=== PATIENT | female | born 1990 | race Caucasian/White ===

== ENCOUNTER 2019-09-29 15:28 | Day surgery (SDC) | payer MEDICAID ==
[2019-09-29] MEDS ORDERED: IV RINGERS,LACTATED 1000ML 1,000 ML IV SCH (15:31)
[2019-09-29] MEDS ORDERED: MORPHINE SULFATE 2 MG/ML VIAL. IV PRN (15:45)
[2019-09-29] MEDS ORDERED: HYDROmorphone 2 MG/ML VIAL IV PRN (15:45)
[2019-09-29] MEDS ORDERED: fentaNYL PF VIAL 100 MCG/2 ML VIAL IV PRN ×2 (15:45)
[2019-09-29] MEDS ORDERED: ONDANSETRON PF 4 MG/2 ML VIAL. IV PRN (15:45)
[2019-09-29] MEDS ORDERED: PROCHLORPERAZINE 10 MG/2 ML VIAL. IV PRN (15:45)
[2019-09-29] MEDS ORDERED: FEXO180T81 PO (15:46)
[2019-09-29] MEDS ORDERED: PNV1TABL78 PO (15:46)
[2019-09-29] MEDS ORDERED: ceFAZolin SODIUM IV Push 1 GM VIAL. IVP ONE (16:00)
[2019-09-29] MEDS ORDERED: SEVOFLURANE 31 TO 60 MINUTES. IH ONE (16:06)
[2019-09-29] MEDS ORDERED: DEXAMETHASONE SOD PHOS 4 MG/ML VIAL ONE (16:06)
[2019-09-29] MEDS ORDERED: PROPOFOL 10 MG/ML (20ML) VIAL. IV ONE (16:06)
[2019-09-29] MEDS ORDERED: LIDOCAINE 2% PF 5 ML VIAL. ONE (16:06)
--- NOTE | 2019-09-29 16:52 | PDOC ---
BRIEF OPERATIVE NOTE Date: Sep 29, 2019 Pre-Op Diagnosis 8 wk Incomplete Post-Op Diagnosis SAme Procedure Performed Suction D&C Surgeon Dr. Restrepo Anesthesia Type: General Blood Loss 100 ml Specimens Obtained POC Findings POC Complications none Operative Note see dictation MICHAEL RESTREPO Jr, MD Sep 29, 2019 16:52
--- NOTE | 2019-09-29 16:53 | DISCH ---
DISCHARGE INSTRUCTIONS Condition on Discharge Condition on Discharge: Stable Activity After Discharge Activity Instructions for Disc: Activity as tolerated Lifting Instructions after Dis: No heavy lifting Driving Instructions after Dis: Do not drive today Diet after Discharge Diet after Discharge: Regular Contacting the DRAlana after DC Call your doctor for: Concerns you may have Follow-Up Follow up with: Dr. Chapa in 2 wks MICHAEL CHAPA Jr, MD Sep 29, 2019 16:53
[2019-09-29 17:55] VITALS: BP 104/64
--- NOTE | 2019-09-29 20:44 | OP ---
DATE OF SURGERY: 09/29/2019 PREOPERATIVE DIAGNOSIS: Eight-week incomplete . POSTOPERATIVE DIAGNOSIS: Eight-week incomplete . PROCEDURE: Suction D and C. SURGEON: Michael Restrepo MD ANESTHESIA: GETA. ESTIMATED BLOOD LOSS: 100 mL. COMPLICATIONS: None. FINDINGS: Products of conception. SUMMARY: A 29-year-old 3, para 2 at about 8 weeks' gestation, presented with diagnosis of incomplete . The patient was counseled on risks, benefits and expectations of suction D and C and voiced clear understanding to proceed. DESCRIPTION OF PROCEDURE: The patient was taken to surgery suite and placed in dorsal lithotomy position, prepped with Betadine solution and draped in sterile fashion. After adequate anesthesia, weighted speculum and curved Cindy placed vaginally. Anterior lip of the cervix grasped with single tooth tenaculum. There was products of conception tissue that was removed with ring forceps. A 9 mm curved tip suction curette was then passed using a pressure of 65 mmHg and rotated in circumferential manner until further blood products were removed. Sharp curettage took place until a fine gritty surface was palpated circumferentially. Suction curette was passed once again removing additional products of conception and blood products. The single tooth tenaculum and weighted speculum were removed. The uterus palpated firm. The patient tolerated the procedure well and was recovering in the biplane room in stable condition. Sponge and needle count correct x 3. MICHAEL RESTREPO MD DR: FLAKO/robbi JOB#: [id number] / [id number]
--- NOTE | 2019-10-01 17:06 | PATHOLOGY ---
[facility] Accession Number: [id number] . 01 Material submitted: . product of conception - PRODUCTS OF CONCEPTION . 01 Clinical history: . Incomplete . 02 Diagnosis: Uterine contents, suction D and C: - Products of conception, comprised of immature chorionic villi showing intervillous hemorrhage, and focal mild hydropic changes and degenerative changes, and segments of decidua and hypersecretory endometrium showing focal hemorrhage and acute inflammation. (JPM:odalys; 10/01/2019) MBR 10/01/2019 1705 Local . 02 Electronically signed: . Derrick Velasquez MD, Pathologist NPI- [id number] . 01 Gross description: . The specimen is received in formalin, labeled "Long, Carmen, products of conception" and consists of hemorrhagic spongy green tissue measuring 9.3 x 7.8 x 1.2 cm in aggregate. No parts or vesicular structures are identified. A gestational sac is present. Parquet Floor Layer'S Helper sections are submitted in A1-A3. ([facility]; 09/30/2019) JFQ/JFQ 09/30/2019 1540 Local . 02 Pathologist provided ICD-10: O03.4, O02.89 . 02 CPT . 624583 Specimen Comment: A courtesy copy of this report has been sent to [phone] Specimen Comment: Report sent to Performed at: 01 [facility] [address], [place] [id number] MD Bassam Scott MD Phone: [phone] Performed at: 02 [facility] [address] [place], [place] [id number] MD Derrick Velasquez MD Phone: [phone]
== END 2019-09-29 18:50 | disposition home or self-care (01) ==
LOC: SURG 15:28
PROVIDERS: ATTEND Obstetrics & Gynecology
DX: O03.4 Incomplete spontaneous abortion without complication (principal); M79.7 Fibromyalgia; D46.9 Myelodysplastic syndrome, unspecified; Z3A.08 8 weeks gestation of pregnancy
CPT/HCPCS: 59812; 88305; J0690; J1100; J2704; J3010; J3490

== ENCOUNTER 2020-12-31 14:41 | Observation (INO) | payer OTHER ==
[~2020-12-31] VITALS: Ht 152.4 cm; Wt 91.3 kg
[~2020-12-31 14:41] MED LIST: FEXO180T81 PO; PNV1TABL78 PO
[2020-12-31] MEDS ORDERED: IV RINGERS,LACTATED 1000ML 1,000 ML IV PRN (15:00)
[2020-12-31 15:26] LABS: BILIRUBIN,URINE NEGATIVE (NEG); COLOR,URINE YELLOW; NITRITE,URINE NEGATIVE (NEG); PROTEIN,URINE NEGATIVE (NEG-TRACE)
[2020-12-31 15:31] LABS: CLARITY,URINE CLEAR
[2020-12-31 15:32] LABS: BACTERIA,URINE FEW /HPF (0-FEW); RBC,URINE OCC /HPF (0-2); WBC,URINE OCC /HPF (0-4)
[2021-01-09] MEDS ORDERED: IBUP-1060 PO (11:32)
[2021-01-09] MEDS ORDERED: FERR325T14 PO (11:32)
[2021-01-09] MEDS ORDERED: DOCU-109 PO (11:32)
== END 2020-12-31 17:19 | disposition home or self-care (01) ==
LOC: 3 SO LND 14:41
PROVIDERS: ADMIT Obstetrics & Gynecology; ATTEND Obstetrics & Gynecology
DX: O99.891 Other specified diseases and conditions complicating pregnancy (principal); M54.5 Low back pain; O26.893 Other specified pregnancy related conditions, third trimester; R10.2 Pelvic and perineal pain; N89.8 Other specified noninflammatory disorders of vagina; Z3A.37 37 weeks gestation of pregnancy
CPT/HCPCS: 59025; 81001; G0378; G0379

== ENCOUNTER 2021-01-07 02:50 | Inpatient (IN) | payer OTHER ==
[~2021-01-07] VITALS: Ht 152.4 cm; Wt 91.3 kg
[2021-01-07 03:00] VITALS: BP 116/78
[2021-01-07] MEDS ORDERED: IV RINGERS,LACTATED 1000ML 1,000 ML IV SCH ×2 (03:00→03:45)
--- NOTE | 2021-01-07 03:35 | PDOC1 ---
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 First day of Last Period 03/2020. Menarche 10yo. LMP mid Dec. EDC: 01/19/21 LMP: 03/30/20 30y @ 38.2 by 7wk u/s presents with LOF. The pt was found to be grossly ruptured and dilated to 7 cm. PMH: ADD, Anxiety, Back pain, Asthma. PSH: Eye surgery , D&C Meds: PNV, omeprazole, Zoloft, Sinulair All: NKDA OBHx: 2 x TSVD, 2 x SAB. SH: 1PPD, no EtOH FH: Ulcers, COPD, HTN, breast and bone cancer Allergies: Coded Allergies: No Known Drug Allergies (Unverified , 09/29/19) Physical Exam: PE: GENERAL: No apparent distress. Alert and oriented. HEENT: Head normocephalic, atraumatic. NECK: Supple LUNGS: Clear to auscultation. HEART: RRR, S1, S2 present, pulses intact ABDOMEN: Soft, positive bowel sounds. EXTREMITIES: No cyanosis or edema. NEUROLOGIC: Normal speech, normal tone PSYCHIATRIC: Normal affect, normal mood. SKIN: No ulceration. FHT: 130s +acels/no decels/mLTV [place]: 2-5 min SVE: 8/90/-2 Assessment & Plan: A/P 30y @ 38.2 by 7wk u/s 1.) SROM expectant management 2.) GERD - on Omeprazole 3.) ADD 4.) Anxiety - on Zoloft 5.) Hyperthyroidism - no meds, labs nml 6.) Migraines 7.) Sonu NI 8.) Panorama - low risk 9.) Girl - Lis Jessica 10.) TDAP given 11/16/20 11.) Fetus cat I FHT 12.) GBS pending no risk factors CARMEN HCATMAN MD Jan 07, 2021 03:35
[2021-01-07] MEDS ORDERED: BUTORPHANOL 2 MG/ML VIAL. IVP PRN ×2 (03:45)
[2021-01-07] MEDS ORDERED: 0.9 % SODIUM CHLORIDE 10 ML DISP.SYRIN. IV PRN ×2 (03:45→05:15)
[2021-01-07] MEDS ORDERED: OXYTOCIN 30 UNIT/500 ML PREMIX 500 ML IV PRN ×3 (03:45→05:15)
[2021-01-07] MEDS ORDERED: ACETAMINOPHEN 325 MG TABLET. PO PRN ×2 (03:45→05:15)
[2021-01-07] MEDS ORDERED: IBUPROFEN 400 MG TABLET. PO PRN (03:45)
[2021-01-07] MEDS ORDERED: TERBUTALINE 1 MG/ML VIAL. SQ PRN (03:45)
[2021-01-07] MEDS ORDERED: LIDOCAINE 1% PF 30 ML VIAL. INJ PRN (03:45)
[2021-01-07] MEDS ORDERED: ONDANSETRON PF 4 MG/2 ML VIAL. ONE ×2 (03:47→04:00)
[2021-01-07 04:04] LABS: BASO % 0 % (0-3); EOS % 0 % (0-3); HEMATOCRIT 35.7 % (36.0-47.0); HEMOGLOBIN 12.1 g/dL (12.0-15.5); LYMPH # 2.8 x10^3/uL (1.0-4.8); LYMPH % 20 % (24-48); MEAN CORPUSCULAR HEMOGLOBIN 27 pg (25-35); MEAN CORPUSCULAR HGB CONC 34 g/dL (31-37); MEAN CORPUSCULAR VOLUME 80 fL (79-100); MONO # 0.9 x10^3/uL (0.0-1.1); MONO % 7 % (0-9); NEUT # 10.5 x10^3/uL (1.8-7.7); NEUT % 73 % (31-73); PLATELET COUNT 229 x10^3/uL (140-400); RED BLOOD COUNT 4.46 x10^6/uL (3.50-5.40); RED CELL DISTRIBUTION WIDTH 14.4 % (11.5-14.5); WHITE BLOOD COUNT 14.3 x10^3/uL (4.0-11.0)
[2021-01-07] MEDS ORDERED: OXYTOCIN PREMIX 30 UNIT/500 ML NS BAG. IV ONE (04:15)
[2021-01-07] MEDS ORDERED: ONDANSETRON PF 4 MG/2 ML VIAL. IVP PRN (04:30)
--- NOTE | 2021-01-07 05:01 | PDOC4 ---
VAGINAL DELIVERY DATE DATE: 01/07/21 TIME: 05:01 TIME Patient delivered a viable female over intact perineum at 0432. Wt 7 lb 9.2 oz. Apgars 4/6/9. Placenta delivered spontaneously, intact with 3VC. 2nd degree laceration repaired with 30 vicryl in nml fashion. Good hemostasis noted. 20 U of Pit given with IVF. EBL 300 cc. WEIGHT Weight [ ] CARMEN CHATMAN MD Jan 07, 2021 05:01
[2021-01-07] MEDS ORDERED: MMR per PROTOCOL. MC PRN (05:15)
[2021-01-07] MEDS ORDERED: SIMETHICONE 80 MG TAB.CHEW PO PRN (05:15)
[2021-01-07] MEDS ORDERED: TDaP (Adacel) per PROTOCOL. MC PRN (05:15)
[2021-01-07] MEDS ORDERED: MAGNESIUM HYDROXIDE 2,400 MG/30 ML ORAL.SUSP. PO PRN (05:15)
[2021-01-07] MEDS ORDERED: HYDROCORTISONE 1% TOPICAL OINTMENT 30GM TUBE. TP PRN (05:15)
[2021-01-07] MEDS ORDERED: BENZOCAINE 20% TOPICAL AEROSOL SPRAY 57GM CAN. TP PRN (05:15)
[2021-01-07] MEDS ORDERED: PHENYLEPH/MINERAL OIL/PETROLAT RECTAL OINTMENT TUBE. RC PRN (05:15)
[2021-01-07] MEDS ORDERED: oxyCODONE/APAP 5/325 1 TAB TABLET PO PRN (05:15)
[2021-01-07] MEDS ORDERED: ZOLPIDEM 5 MG TABLET. PO PRN (05:15)
[2021-01-07] MEDS ORDERED: MAG HYDROX/ALUMINUM HYD/SIMETH 30 ML ORAL.SUSP PO PRN (05:15)
[2021-01-07] MEDS ORDERED: diphenhydrAMINE HCL 25 MG CAPSULE PO PRN (05:15)
[2021-01-07] MEDS ORDERED: DOCUSATE SODIUM 100 MG CAPSULE. PO PRN (05:15)
[2021-01-07] MEDS: IBUPROFEN 400 MG TABLET. PO PRN ×2 (06:38→15:59)
[2021-01-07 07:25] VITALS: BP 128/66
[2021-01-07 12:00] VITALS: BP 130/83
[2021-01-07] MEDS: PRENATAL MULTIVITAMIN TABLET. PO SCH (15:57)
[2021-01-07 16:30] VITALS: BP 123/77
[2021-01-07 20:15] VITALS: BP 118/64
[2021-01-08 00:05] VITALS: BP 117/75
[2021-01-08] MEDS: IBUPROFEN 400 MG TABLET. PO PRN ×4 (00:06→23:40)
[2021-01-08 04:10] VITALS: BP 118/72
[2021-01-08 07:51] LABS: HEMATOCRIT 27.8 % (36.0-47.0); HEMOGLOBIN 9.4 g/dL (12.0-15.5); RED BLOOD COUNT 3.41 x10^6/uL (3.50-5.40); RED CELL DISTRIBUTION WIDTH 14.4 % (11.5-14.5)
[2021-01-08 08:30] VITALS: BP 121/55
[2021-01-08] MEDS: FERROUS SULFATE 325 MG TABLET. PO SCH ×2 (08:58→17:24)
[2021-01-08] MEDS: PRENATAL MULTIVITAMIN TABLET. PO SCH (08:58)
--- NOTE | 2021-01-08 15:14 | PDOC ---
SANDER PORTABLE MACHINE PROGRESS NOTE Date of Service: DATE: 01/08/21 TIME: 15:11 Subjective: Pt with good pain control. Donna PO. Voiding. Minimal lochia Objective: Vital Signs: Vital Signs Date Time Temp Pulse Resp B/P (MAP) Pulse Ox O2 Delivery O2 Flow Rate FiO2 01/07/21 07:25 98.2 81 18 128/66 (86) Room Air 98.2 Vital Signs Date Time Temp Pulse Resp B/P (MAP) Pulse Ox O2 Delivery O2 Flow Rate FiO2 01/08/21 08:30 98.5 77 18 121/55 (77) 98.5 01/08/21 00:05 Room Air Labs: Laboratory Tests Test 01/08/21 07:15 White Blood Count 9.0 x10^3/uL (4.0-11.0) Red Blood Count 3.41 x10^6/uL (3.50-5.40) L Hemoglobin 9.4 g/dL (12.0-15.5) L Hematocrit 27.8 % (36.0-47.0) L Mean Corpuscular Volume 82 fL (79-100) Mean Corpuscular Hemoglobin 28 pg (25-35) Mean Corpuscular Hemoglobin Concent 34 g/dL (31-37) Red Cell Distribution Width 14.4 % (11.5-14.5) Platelet Count 174 x10^3/uL (140-400) Laboratory Tests 01/08/21 07:15 Laboratory Tests 01/08/21 07:15 Physical Exam: GENERAL: No apparent distress. Alert and oriented. HEENT: Head normocephalic, atraumatic. NECK: Supple LUNGS: Clear to auscultation. HEART: RRR, S1, S2 present, pulses intact ABDOMEN: Soft, positive bowel sounds. EXTREMITIES: No cyanosis or edema. NEUROLOGIC: Normal speech, normal tone PSYCHIATRIC: Normal affect, normal mood. SKIN: No ulceration. FFNT below umb no C/C/E Assessment & Plan: A/P 30y PPD #1 s/p 1.) PP - doing well 2.) GERD 3.) ADD 4.) Anxiety - on Zoloft 5.) Hyperthyroidism - no meds, labs nml 6.) Migraines 7.) Sonu NI 8.) Hgb 12.1 -> 9.4 9.) Girl - Lis Jessica 10.) TDAP given 11/16/20 11.) Cont PP care CARMEN CHATMAN MD Jan 08, 2021 15:14
[2021-01-08 16:15] VITALS: BP 107/61
[2021-01-08 20:15] VITALS: BP 116/51
[2021-01-09] VITALS: BP 125/50
[2021-01-09 05:39] VITALS: BP 126/65
[2021-01-09] MEDS: PRENATAL MULTIVITAMIN TABLET. PO SCH (09:09)
[2021-01-09] MEDS: FERROUS SULFATE 325 MG TABLET. PO SCH (09:09)
[2021-01-09] MEDS: IBUPROFEN 400 MG TABLET. PO PRN (09:09)
[2021-01-09 09:30] VITALS: BP 121/72
[2021-01-09] MEDS ORDERED: FERR325T14 PO (11:32)
[2021-01-09] MEDS ORDERED: DOCU-109 PO (11:32)
[2021-01-09] MEDS ORDERED: IBUP-1060 PO (11:32)
[2021-01-09] MEDS ORDERED: FLU VACC QUAD 21-22 (6MOS+) PF 0.5 ML SYRINGE. VAX IM ONE (11:45)
--- NOTE | 2021-01-09 11:49 | PDOC ---
CABLE RESPOOLER PROGRESS NOTE Date of Service: DATE: 01/09/21 TIME: 11:48 Subjective: Pt with good pain control. Donna PO. Voiding. Minimal lochia. Objective: Vital Signs: Vital Signs Date Time Temp Pulse Resp B/P (MAP) Pulse Ox O2 Delivery O2 Flow Rate FiO2 01/08/21 08:30 98.5 77 18 121/55 (77) 98.5 01/08/21 16:15 98 01/08/21 20:15 Room Air Vital Signs Date Time Temp Pulse Resp B/P (MAP) Pulse Ox O2 Delivery O2 Flow Rate FiO2 01/09/21 09:30 98.0 71 18 121/72 (88) 98 Room Air 98.0 Physical Exam: GENERAL: No apparent distress. Alert and oriented. HEENT: Head normocephalic, atraumatic. NECK: Supple LUNGS: Clear to auscultation. HEART: RRR, S1, S2 present, pulses intact ABDOMEN: Soft, positive bowel sounds. EXTREMITIES: No cyanosis or edema. NEUROLOGIC: Normal speech, normal tone PSYCHIATRIC: Normal affect, normal mood. SKIN: No ulceration. FFNT below umb No C/C/E Assessment & Plan: A/P 30y PPD #2 s/p 1.) PP - doing well 2.) GERD 3.) ADD 4.) Anxiety - on Zoloft 5.) Hyperthyroidism - no meds, labs nml 6.) Migraines 7.) Sonu NI 8.) Hgb 12.1 -> 9.4 9.) Girl - Lis Lopez 10.) TDAP given 11/16/20 11.) D/c home CARMEN CHATMAN MD Jan 09, 2021 11:49
[2021-01-09 12:14] VITALS: BP 113/74
--- NOTE | 2021-01-09 12:15 | NUR ---
Completed Post home instructions post giving pt her seasonal Flu vaccine.
--- NOTE | 2021-01-09 12:35 | NUR ---
Pt. escorted to exit per w/c accompanied by and her daughter in stable post condition. Home care, followup care and PP visit and RX reviewed and given to pt. with verbal and written consent.
--- NOTE | 2021-01-09 20:28 | DS ---
DATE OF DISCHARGE: 01/09/2021 ADMISSION DIAGNOSES: 1. Intrauterine at 38 weeks and 2 days by 7-week ultrasound. 2. Spontaneous rupture of membranes. 3. Gastroesophageal reflux disease. 4. Attention deficit hyperactivity disorder. 5. Anxiety. 6. Hyperthyroidism. 7. Migraines. 8. Varicella nonimmune. 9. Status post Tdap. 10. GBS negative. DISCHARGE DIAGNOSES: 1. Intrauterine at 38 weeks and 2 days by 7-week ultrasound. 2. Spontaneous rupture of membranes. 3. Gastroesophageal reflux disease. 4. Attention deficit hyperactivity disorder. 5. Anxiety. 6. Hyperthyroidism. 7. Migraines. 8. Varicella nonimmune. 9. Status post Tdap. 10. GBS negative. PROCEDURES: Spontaneous vaginal delivery. BRIEF HOSPITAL COURSE: The patient is a 30-year-old 5, para 2-0-2-2, who presented to Labor and Delivery at 38 weeks and 2 days by 7-week ultrasound with leakage of fluid. On presentation, the patient was found to be grossly ruptured and 7 cm dilated. The patient ultimately delivered by vaginal delivery. See delivery note for full detail. By day #2, the patient was meeting all discharge criteria and subsequently discharged home. Of note, the patient's hemoglobin on admission was found to be 12.1 and after delivery, it was found to be 9.4. DISCHARGE INSTRUCTIONS: The patient was told not to lift anything greater than 20 pounds, have pelvic rest for 6 weeks. CALL IF: The patient is to call if she had fevers, chills, nausea, vomiting, abdominal pain or any additional questions or concerns. FOLLOWUP APPOINTMENT: The patient is to follow up on 02/15 at 1:45 p.m. DISCHARGE MEDICATIONS: The patient was given a prescription for Motrin 800 mg, 30 pills, ferrous sulfate 325 mg 30 pills and Colace 100 mg, [address]: Russell TID: [id number]
== END 2021-01-09 14:11 | disposition home or self-care (01) | DRG 807 ==
LOC: 3 SO LND 02:50 → OBSVTOIN 03:42 → 3 SO LND 08:00
PROVIDERS: ADMIT Obstetrics & Gynecology; ATTEND Obstetrics & Gynecology
PROC: 0KQM0ZZ Repair Perineum Muscle, Open Approach (ICD-10-PCS; principal; 2021-01-07)
PROC: 10E0XZZ Delivery of Products of Conception, External Approach (ICD-10-PCS; 2021-01-07)
DX: O99.354 Diseases of the nervous system complicating childbirth (principal); Z37.0 Single live birth; F41.9 Anxiety disorder, unspecified; O99.52 Diseases of the respiratory system complicating childbirth; O99.344 Other mental disorders complicating childbirth; O99.284 Endocrine, nutritional and metabolic diseases complicating childbirth; F90.9 Attention-deficit hyperactivity disorder, unspecified type; G43.909 Migraine, unspecified, not intractable, without status migrainosus; O16.4 Unspecified maternal hypertension, complicating childbirth; O99.62 Diseases of the digestive system complicating childbirth; E05.90 Thyrotoxicosis, unspecified without thyrotoxic crisis or storm; J44.9 Chronic obstructive pulmonary disease, unspecified; K21.9 Gastro-esophageal reflux disease without esophagitis; Z3A.38 38 weeks gestation of pregnancy; Z20.822 Contact with and (suspected) exposure to COVID-19; O70.1 Second degree perineal laceration during delivery
CPT/HCPCS: 36415; 85025; 85027; 86592; 86850; 86900; 86901; 87426; 88307; 90471; 90686; G0379; J2405; J2590; J7120; U0003; U0005; G0378